=== PATIENT | male | born 1950 | race African-American/Black ===

== ENCOUNTER 2017-09-05 14:27 | Emergency (ER) | payer MEDICARE, OTHER ==
[~2017-09-05] VITALS: Ht 180.3 cm; Wt 100.0 kg
[2017-09-05] MEDS ORDERED: SODIUM CHLORIDE 0.9% 1,000 ML IV ONE (14:37)
[2017-09-05] MEDS ORDERED: BACITRACIN ZINC OINT UDPKT TOP ONE (14:45)
[2017-09-05] MEDS ORDERED: TETANUS, DIPHTHERIA, PERTUSSIS VAC/PF 0.5ML (>7YR OLD) IM ONE (14:45)
[2017-09-05] MEDS ORDERED: LEVETIRACETAM 500MG PREMIX 100 ML IV ONE (14:45)
[2017-09-05] MEDS ORDERED: LORAZEPAM 2MG/ML CPJ IV ONE (14:45)
[2017-09-05 15:35] LABS: BASOPHILS % 0.9 % (0.0-2.0); EOSINOPHILS % 7.3 % (0.0-5.0); HEMATOCRIT. 44.7 % (42.0-52.0); HEMOGLOBIN. 14.5 g/dL (14.0-18.0); LYMPHOCYTES % 15.4 % (20.0-50.0); MEAN CORPUSCULAR VOLUME 80.4 fL (80.0-94.0); MEAN PLATELET VOLUME 7.9 fl (7.4-10.4); MONOCYTES % 6.5 % (2.0-8.0); NEUTROPHILS % 69.9 % (40.0-76.0); PLATELET 248 x1000/uL (130-400); RED BLOOD CELL COUNT 5.56 mill/uL (4.7-6.1)
[2017-09-05 15:42] LABS: CHLORIDE 106 mEq/L (98-107)
[2017-09-05 15:45] LABS: ETHANOL BLOOD < 10 mg/dL
[2017-09-05 15:50] LABS: CREATINE KINASE 175 IU/L (39-308); VALPROIC ACID < 3.0 ug/mL (50-100)
[2017-09-05 15:56] LABS: CARBAMAZEPINE < 0.5 ug/mL (4-12); PHENOBARBITAL < 2.1 ug/mL (15.0-40.0)
[2017-09-05 23:06] VITALS: BP 134/91
== END 2017-09-05 23:09 | disposition home or self-care (01) ==
LOC: ER 14:56
DX: G40.909 Epilepsy, unspecified, not intractable, without status epilepticus (principal); S00.81XA Abrasion of other part of head, initial encounter; R94.31 Abnormal electrocardiogram [ECG] [EKG]; Z91.14 Patient's other noncompliance with medication regimen; X58.XXXA Exposure to other specified factors, initial encounter; Y93.89 Activity, other specified; Y92.488 Other paved roadways as the place of occurrence of the external cause
CPT/HCPCS: 36415; 80053; 80156; 80165; 80184; 80185; 82550; 84443; 84484; 85025; 90471; 90715; 93005; 96365; 96375; 99285; G0482; J1953; J2060; J7030